=== PATIENT | female | born 1955 | race Two or more races ===

== ENCOUNTER 2018-09-30 15:26 | Outpatient (CLI) ==
--- NOTE | 2018-09-30 16:16 | DI ---
EXAM: Two views of the chest. History: Bronchitis. Findings: Heart is borderline enlarged. No focal consolidation. No appreciable pleural fluid and n o pneumothorax. No acute osseous abnormalities. Prominent contour of the ascending aorta. Surgical clips seen within the upper abdomen. Impression: 1. Borderline cardiomegaly without acute disease in the chest. 2. Prominent contour of the ascending aorta.
== END 2018-09-30 15:27 | disposition home or self-care (01) ==
LOC: RAD 15:26
PROVIDERS: ATTEND Family Medicine
DX: J40 Bronchitis, not specified as acute or chronic (principal)